=== PATIENT | male | born 1985 | race Caucasian/White ===

== ENCOUNTER 2016-10-26 16:39 | Emergency (ER) | payer SELFPAY ==
[~2016-10-26] VITALS: Ht 190.5 cm; Wt 83.2 kg
[~2016-10-26 16:39] MED LIST: CIPRO500 MG PO; NO HOME MEDICATIONS; PEPCID 20MG TAB20 MG PO; PHENERGAN 25 TA25 MG PO; PHENERGAN25 MG RC
[2016-10-26 16:42] VITALS: BP 160/109; TEMP 98.5
[2016-10-26] MEDS ORDERED: ULTRAM 50MG TAB50 MG PO (17:55)
[2016-10-26 18:20] VITALS: PULSE 88
== END 2016-10-26 18:20 | disposition home or self-care (01) ==
LOC: COL.ER 16:39
DX: M25.562 Pain in left knee (principal); M25.561 Pain in right knee

== ENCOUNTER 2017-02-14 01:52 | Emergency (ER) | payer SELFPAY ==
[~2017-02-14] VITALS: Ht 190.5 cm; Wt 81.8 kg
[~2017-02-14 01:52] MED LIST changes: +ULTRAM 50MG TAB50 MG PO
[2017-02-14 01:55] VITALS: TEMP 97.6
[2017-02-14] MEDS ORDERED: ZITHROMAX500 M2 PO (02:32)
[2017-02-14] MEDS ORDERED: NORCO 325 MG-51 TAB PO (02:32)
[2017-02-14 03:14] VITALS: BP 120/70; PULSE 80
== END 2017-02-14 03:33 | disposition home or self-care (01) ==
LOC: COL.ER 01:52
DX: H66.92 Otitis media, unspecified, left ear (principal); H60.502 Unspecified acute noninfective otitis externa, left ear
CPT/HCPCS: J0696